=== PATIENT | male | born 1940 | race Caucasian/White ===

== ENCOUNTER 2017-02-20 15:19 | Emergency (ER) | payer MEDICARE, OTHER ==
[~2017-02-20] VITALS: Ht 157.5 cm; Wt 78.0 kg
[~2017-02-20 15:19] MED LIST: ACET-2047 PO; ASPI325T32 PO; ATOR80TA75 PO; DONE10TA7 PO; MAG355OR14 PO; MAGN400O4 PO; NASO17 NASAL; PANT40TA4 PO; SERT100T PO; ZOLP5TAB PO
[2017-02-20 15:25] VITALS: Ht 157.5 cm; Wt 78.0 kg
--- NOTE | 2017-02-20 17:54 | RADRPT ---
PROCEDURE: XR Tibia and Fibula. CLINICAL INDICATION: Pain and injury. TECHNIQUE: AP and lateral views of the right tibia and fibula were obtained. COMPARISON: No prior studies are available for comparison. FINDINGS: There is normal mineralization and alignment. No fracture or osseous lesion is identified. The joint s are unremarkable. Free fluid within the tissues of the left lower leg. IMPRESSION: No acute bony abnormality. RPTAT: [facility]. .Erick Dsouza MD, MD Date Time Electronically viewed and signed by .Erick Dsouza MD, on 02/20/2017 17:54 .M/
[2017-02-20] MEDS ORDERED: MAGNESIUM CITRATE 300 ML BTL PO ONE (18:00)
--- NOTE | 2017-02-20 18:19 | RADRPT ---
PROCEDURE: XR Abdomen. CLINICAL INDICATION: Pain TECHNIQUE: AP abdomen x-ray. COMPARISON: None. FINDINGS: There is moderate stool throughout the colon.. There is no evidence of obstruction or ileus. Vascul ar calcifications are present. Scattered surgical clips in the pelvis are present. There are degen erative changes of the lower lumbar spine. IMPRESSION: Moderate stool. No definite obstruction or ileus. RPTAT: [facility] .Tyler Doe MD, MD Date Time Electronically viewed and signed by .Tyler Doe MD, on 02/20/2017 18:19 .K/
--- NOTE | 2017-02-20 18:29 | RADRPT ---
PROCEDURE: XR Lumbar Spine. CLINICAL INDICATION: Pain. TECHNIQUE: Three views of the lumbar spine are available for review COMPARISON: X-ray [facility] 12/20/2016 FINDINGS: Bones are osteopenic. There is mild approximately 20% loss of height of the L1, L2 and L3 vertebral bodies. There is no posterior retropulsion.. There is maintenance of height of the remainder of t he vertebral bodies. Alignment is maintained; there is no spondylolisthesis. Pedicles are intact. Mild endplate degenerate change including posterior lateral osteophyte and L2-3 and bilateral facet hypertrophy L5-S1 present vascular calcifications are present. IMPRESSION: 1. Mild ag- indeterminate loss of height of the L1, of 2 and L3 vertebral bodies. 2. Diffuse osteopenia. 3. Degenerative changes. RPTAT: [facility] .Tyler Doe MD, Date Time Electronically viewed and signed by .Tyler Doe MD, on 02/20/2017 18:29 .K/
--- NOTE | 2017-02-20 18:40 | ERD ---
ER Documentation Chief Complaint Date/Time DATE: 02/20/17 TIME: 18:38 Chief Complaint MECH FALL , HAS BACK PAIN, ALSO NO BM X 1 WEEK, AP HPI This is a 76-year-old male who presents to the emergency room for evaluation of a mechanical fall. The patient did have a mechanical fall 3 days ago and states that he hit his back, and his left leg. The patient has been ambulating without difficulty and has not been in any distress or denies any head injury loss of consciousness. The patient came to the ER today for evaluation because he states that today he started to have a little bit of pain in his lower back, left lower extremity. This patient's is also stating the patient has not had a large bowel movement in the past week. The patient is passing gas and denies any abdominal pain nausea vomiting ROS All systems reviewed and are negative except as per history of present illness. Medications Home Meds Discontinued Reported Medications Zolpidem Tartrate* (Ambien*) 5 Mg Tablet, 5 MG PO HS Y for INSOMNIA, TAB 12/06/14 Sertraline Hcl* (Zoloft*) 100 Mg Tablet, 100 MG PO DAILY, TAB 12/06/14 Pantoprazole (Protonix) 40 Mg Tabec, 40 MG PO DAILY, TAB 12/06/14 Mometasone Furoate* (Nasonex*) 50 Mcg/Mcmillan - 17 Gm Mcmillan.pump, 1 SPRAY NASAL DAILY, SPRAY 1 gm nasally daily 12/06/14 Magnesium Hydroxide* (Milk Of Magnesia*) 400 Mg/5 Ml Oral.susp, 30 ML PO HS Y for CONSTIPATION, ML 12/06/14 Mag Hydrox/Al Hydrox/Simeth (MAALOX ADVANCED SUSPENSION) 770 Ml Oral.susp, 30 ML PO Q6 Y for GASTROINTESTINAL UPSET 12/06/14 Donepezil* (Aricept*) 10 Mg Tablet, 10 MG PO HS, TAB 12/06/14 Atorvastatin* (Atorvastatin*) 80 Mg Tablet, 80 MG PO HS, TAB 12/06/14 Aspirin* (Aspirin* EC) 325 Mg Tab, 325 MG PO DAILY, TAB 12/06/14 Acetaminophen* (Acetaminophen*) 650 Mg Tablet, 650 MG PO Q6 Y for FEVER, TAB 12/06/14 Allergies Allergies: Coded Allergies: No Known Allergy (Unverified , 02/20/17) PMhx/Soc History of Surgery: Yes (carotid endarterectomy 2013) Anesthesia Reaction: No Hx Neurological Disorder: Yes (hx stroke Apr 2014) Hx Respiratory Disorders: Yes (hx COPD) Hx Cardiac Disorders: No Hx Psychiatric Problems: No Hx Miscellaneous Medical Probl: Yes (HTN, hyperlipidemia, DM) Hx Alcohol Use: No Hx Substance Use: No Hx Tobacco Use: Yes (quit 8 months ago) Smoking Status: Former smoker Physical Exam Vitals Vital Signs Date Time Temp Pulse Resp B/P Pulse Ox O2 Delivery O2 Flow Rate FiO2 02/20/17 15:25 97.8 78 18 144/85 99 Physical Exam INITIAL VITAL SIGNS: Reviewed by me GENERAL: The patient is well developed and appropriate for usual state of health in no apparent distress HEENT: Pupils equal, round, and reactive to light. EOMI. There is no scleral icterus. NECK: C-spine is soft and supple, there is no meningismus. There is no cervical lymphadenopathy. LUNGS: Clear to auscultation bilaterally. There are no rales, wheezes or rhonchi. HEART: Regular rate and rhythm, no murmurs, clicks, rubs or gallops. ABDOMEN: Soft, non-tender, non-distended. There are bowel sounds in all four quadrants. No rebound or guarding. EXTREMITIES: There is no peripheral cyanosis or edema. No focal swelling or erythema. NEUROLOGICAL: The patient moves all four extremities with 5/5 strength. Cranial nerves II - XII are intact. Normal gait. Alert and oriented SKIN: There is no apparent rash or petechiae. HEME/LYMPHATIC: There is no evidence of excessive bruising or lymphedema. PSYCHIATRIC: The patient does not appear anxious or depressed. Results 24 hrs Current Medications Medications (Trade) Dose Ordered Sig/Lexy Route PRN Reason Start Time Stop Time Status Last Admin Dose Admin Magnesium Citrate (Citroma) 300 ml ONCE ONCE PO 02/20/17 18:00 02/20/17 18:01 DC 02/20/17 17:49 Procedures/MDM X-ray LS-Spine 3V Interpreted by me: Bones: [No fracture] Joints: [No dislocation] Foreign body: [None] X-ray Abdomen 1V Interpreted by me: Free Air: [None] Bowel Gas: [Nonspecific] Soft Tissue: [Normal] X-ray Tib/Fib 2V Interpreted by me: Bones: [No fracture] Joints: [No dislocation] Foreign body: [None] This is a 76-year-old male presents to the emergency room for evaluation of back pain, constipation, leg pain after ground-level fall. When I evaluated this patient is ambulating without difficulty and was in no acute distress. The patient had bowel sounds all 4 quadrants and was passing gas. X-ray does reveal mild stool, x-ray of the lumbar spine and tib-fib did not reveal any acute fractures. The patient was given mag citrate in the emergency room will be discharged home with a prescription for MiraLAX for constipation. Departure Diagnosis: Primary Impression: Fall from ground level Additional Impressions: Contusion of leg, left Constipation Condition: Stable ABRIL FORRESTER DO Feb 20, 2017 18:39
[2017-02-20] MEDS ORDERED: POLY17PO6 PO (18:43)
[2017-02-20 18:46] VITALS: BP 179/89; PULSE 43; RESP 18
== END 2017-02-20 18:56 | disposition home or self-care (01) ==
LOC: E/R 15:19
DX: S80.12XA Contusion of left lower leg, initial encounter (principal); K59.00 Constipation, unspecified; I10 Essential (primary) hypertension; E11.9 Type 2 diabetes mellitus without complications; J44.9 Chronic obstructive pulmonary disease, unspecified; W18.00XA Striking against unspecified object with subsequent fall, initial encounter; Y92.9 Unspecified place or not applicable; Z87.891 Personal history of nicotine dependence; Z79.82 Long term (current) use of aspirin
CPT/HCPCS: 72100; 73590; 74000